=== PATIENT | female | born 1955 ===

== ENCOUNTER → 2025-06-10 08:16 | Outpatient (BNVA) | payer MEDICARE, SELFPAY | PROVIDERS: PCP Emergency Medicine Undersea and Hyperbaric Medicine; Referring Provider Emergency Medicine Undersea and Hyperbaric Medicine; Visit Provider Podiatrist | DX: L60.0 Ingrowing nail (principal); L03.031 Cellulitis of right toe; M79.671 Pain in right foot | CPT/HCPCS: 11750 ==

== ENCOUNTER → 2025-06-18 08:57 | Outpatient (BNVA) | payer MEDICARE, SELFPAY | PROVIDERS: PCP Emergency Medicine Undersea and Hyperbaric Medicine; Referring Provider Emergency Medicine Undersea and Hyperbaric Medicine; Visit Provider Podiatrist | DX: L60.0 Ingrowing nail (principal); L03.115 Cellulitis of right lower limb; L03.031 Cellulitis of right toe; M79.671 Pain in right foot | CPT/HCPCS: 11750 ==

== ENCOUNTER → 2025-07-09 08:59 | Outpatient (BNVA) | payer MEDICARE, SELFPAY | PROVIDERS: PCP Emergency Medicine Undersea and Hyperbaric Medicine; Referring Provider Emergency Medicine Undersea and Hyperbaric Medicine; Visit Provider Podiatrist | DX: Z51.89 Encounter for other specified aftercare (principal); L60.0 Ingrowing nail; L03.031 Cellulitis of right toe | CPT/HCPCS: 99212 ==